=== PATIENT | female | born 1965 | race Caucasian/White ===

== ENCOUNTER → 2016-04-09 | Outpatient (REF) | payer OTHER | LOC: M LAB REF 14:04 | PROVIDERS: ATTEND Physician Assistant | DX: M79.7 Fibromyalgia (principal) ==

== ENCOUNTER 2017-02-22 17:33 | Emergency (ER) | payer OTHER, SELFPAY ==
[~2017-02-22] VITALS: Ht 172.7 cm; Wt 109.9 kg
[2017-02-22] MEDS ORDERED: IBUP200C10 PO (18:26)
[2017-02-22 23:10] VITALS: BP 128/62
[2017-02-22] MEDS ORDERED: AMOX875T PO (23:10)
[2017-02-22] MEDS ORDERED: GENT3OPD OS (23:10)
[2017-02-22] MEDS ORDERED: AMOXICILLIN 500 MG CAP PO ONE (23:15)
[2017-02-22] MEDS ORDERED: GENTAMICIN 0.3% OPHTH SOL 5 ML BTL OS ONE (23:15)
[2017-02-22] MEDS ORDERED: NYST50SS SS (23:26)
== END 2017-02-22 23:15 | disposition home or self-care (01) ==
LOC: M ED 17:33
DX: J02.9 Acute pharyngitis, unspecified (principal); H66.92 Otitis media, unspecified, left ear; H10.9 Unspecified conjunctivitis; B37.0 Candidal stomatitis; F17.210 Nicotine dependence, cigarettes, uncomplicated

== ENCOUNTER → 2023-09-19 | Outpatient (REF) | payer SELFPAY, OTHER ==
[~2023-09-19] MED LIST: AMOX875T PO; GENT0.3S36 OS; IBUP200C25 PO; NYST-38 SS
[2023-09-19 16:52] LABS: APPEARANCE, URINE HAZY (CLEAR); BACTERIA, URINE AUTO 1+ (NEGATIVE); BILIRUBIN, URINE AUTO NEGATIVE (NEGATIVE); BLOOD, URINE BLOOD 3+ (NEGATIVE); COLOR, URINE YELLOW (YELLOW); GLUCOSE, URINE (UA) AUTO NEGATIVE (NEGATIVE); KETONE, URINE AUTO NEGATIVE (NEGATIVE); LEUKOCYTE ESTERASE, URINE AUTO 1+ (NEGATIVE); MUCUS, URINE SMALL (NEGATIVE); NITRITE, URINE AUTO POSITIVE (NEGATIVE); PROTEIN, URINE AUTO 2+ mg/dL (NEGATIVE); RBC, URINE AUTO 63 /HPF (0-3); SPECIFIC GRAVITY URINE AUTO 1.023 (1.002-1.035); SQUAMOUS EPITHELIAL CELL UR AU 0 /HPF (0-6); UROBILINOGEN, URINE AUTO 0.2 mg/dL (0.0-2.0); WBC, URINE AUTO 48 /HPF (0-3)
== END ==
LOC: M LAB REF 16:20
PROVIDERS: ATTEND Physician Assistant Medical
DX: N39.0 Urinary tract infection, site not specified (principal)

== ENCOUNTER → 2025-01-11 | Outpatient (REF) | payer OTHER | LOC: EEVIPCON 17:13 → M LAB REF 17:13 | PROVIDERS: ATTEND Physician Assistant Medical | DX: L03.90 Cellulitis, unspecified (principal) ==